=== PATIENT | female | born 1995 | race Caucasian/White ===

== ENCOUNTER 2016-06-09 20:45 | Emergency (ER) | payer OTHER ==
[~2016-06-09 20:45] MED LIST: ABILIFY 2MG2 MG PO; ABILIFY 5MG5 MG PO; ABILIFY5 M1 PO; AUGMENTIN 875-1 EACH PO; FIORICET 325 MG1 TAB PO; FIORICET 50-301 EACH PO; IBUPROFEN600 M1 PO; LAMOTRIGINE100 MG PO; MIRTAZAPINE30 M2 PO; MIRTAZAPINE7.5 M1 PO; MOTRIN800 MG PO; ORTHO TRI-CYCLE1 TA1 PO; ORTHO TRI-CYCLE1 TA2 PO; PREDNISONE20 M1 PO; QUETIAPINE FUM100 MG PO; SAPHRIS5 M1 SL; SERTRALINE HCL100 MG PO; SERTRALINE HYDR50 MG PO; TRAZODONE HCL50 M1 PO; VITAMIN D250000 UNIT PO; ZOFRAN ODT4 M1 PO; ZOFRAN4 M2 PO
[2016-06-09 21:10] VITALS: BP 118/78
[2016-06-09] MEDS ORDERED: PEPCID20 M1 PO (21:41)
[2016-06-09] MEDS ORDERED: BENADRYL ALLERG25 M2 PO (21:41)
[2016-06-09] MEDS ORDERED: PREDNISONE20 M1 PO (21:41)
--- NOTE | 2016-06-09 21:42 | ED SKIN/ALLERGY COMPLAINT ---
History of Present Illness General Chief Complaint: Skin Rash/ Abcess Stated Complaint: RASH ON FACE Source: patient, old records Exam Limitations: no limitations Vital Signs & Intake/Output Vital Signs & Intake/Output Vital Signs Date Time Temp Pulse Resp B/P Pulse O2 O2 Flow FiO2 Ox Delivery Rate 06/09 2110 99.1 95 18 118/78 98 Room Air Allergies Coded Allergies: lithium (FELT BODY GET NUMB AND SHAKE 02/27/16) Reconcile Medications Asenapine Maleate (Saphris) 5 MG TAB.SUBL 1 TAB SL QPM MENTAL HEALTH ( Reported) Diphenhydramine HCl (Benadryl Allergy) 25 MG TABLET 1-2 TAB PO Q6P PRN allergic rx Famotidine (Pepcid) 20 MG TABLET 1 TAB PO BID allergic rx Lamotrigine 100 MG TABLET 300 MG PO BID SEIZURES (Reported) NORGESTIMATE-ETHINYL ESTRADIOL (Ortho Tri-Cyclen Lo Tablet) 1 TAB TAB 1 TAB PO DAILY CONTROL (Reported) Prednisone 20 MG TABLET 1 TAB PO BID allergic rx Sertraline HCl 100 MG TABLET 1.5 TAB PO DAILY MENTAL HEALTH (Reported) Trazodone HCl 50 MG TABLET 0.5 TAB PO QPM SLEEP (Reported) Triage Note: TRIAGE; PT TO ED WITH ?ALLERGIC RXN TO FACE. STATES SHE IS TAKING DOXYCYCLINE AND 3RD DOSE WITH 30 MINS AGO RIGHT BEFORE SYMPTOMS STARTED. STATES SHE DIDNT EAT ANYTHING NEW WITH DINNER. FACE IS RED AND SWOLLEN. STATES SHE FEELS LIKE HER VISION HAS BEEN BLURRY X3 DAYS, WITH NAUSEA AND VOMITING THIS AM. STATES STARTING TO FEEL ITCHY. DENIES ANY DIFFICULTY BREATHING. DENIES ANY NEW SOAPS, DETERGENTS, ETC. Triage Nurses Notes Reviewed? yes Onset: Just prior to arrival Duration: hour(s):, constant, continues in ED Timing: recent history Severity: moderate Location: face Possible Factors: medications Modifying Factors: Improves With: scratching. Associated Symptoms: rash LMP (ages 10-50): unknown : No Patient currently breastfeeds: No HPI: 1 day prior to admission patient was prescribed doxycycline for pelvic infection. She has taken 3 doses. Prior to admission shortly after taking her third dose she developed itchy rash on her face. She denies other new medications fever chills nausea vomiting diarrhea abdominal pain chest pain shortness of breath headache dysuria bleeding. Past History Travel History Traveled to [place] past 21 day No Medical History Any Pertinent Medical History? 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 No Review of Systems Review of Systems Constitutional: Reports: no symptoms. EENTM: Reports: no symptoms. Respiratory: Reports: no symptoms. Cardiovascular: Reports: no symptoms. GI: Reports: no symptoms. Genitourinary: Reports: no symptoms. Musculoskeletal: Reports: no symptoms. Skin: Reports: see HPI, rash. Neurological/Psychological: Reports: no symptoms. Hematologic/Endocrine: Reports: no symptoms. Immunologic/Allergic: Reports: no symptoms. All Other Systems: Reviewed and Negative Physical Exam Physical Exam General Appearance: well developed/nourished, mild distress Head: atraumatic Eyes: Bilateral: PERRL, EOMI. Ears, Nose, Throat: normal pharynx, normal ENT inspection, hearing grossly normal Neck: normal inspection, supple Respiratory: normal breath sounds Cardiovascular: regular rate/rhythm Peripheral Pulses: 4+ carotid (R), 4+ carotid (L) Gastrointestinal: soft, non-tender Back: normal inspection Extremities: normal inspection, normal range of motion, no edema Neurologic/Psych: awake, alert, oriented x 3, normal mood/affect Reflexes: 2+: bicep (R), bicep (L). Skin: intact, normal color, rash Skin Problem Location: face Skin Problem Character: rash Lymphatic: no anterior cervical krissy Progress Differential Diagnosis: abscess/cellulitis, allergic reaction, contact dermatitis, drug reaction Plan of Care: Current Medications Sig/Bony Start time Last Medication Dose Stop Time Status Admin Diphenhydramine HCl 25 MG ONCE ONE 06/09 2144 UNVr (Benadryl) 06/09 2145 Famotidine 20 MG ONCE ONE 06/09 2144 UNVr (Pepcid) 06/09 2145 Prednisone 60 MG ONCE ONE 06/09 2144 UNVr 06/09 2145 Departure Departure Time of Disposition: 2138 Disposition: HOME OR SELF CARE Condition: Stable Clinical Impression Primary Impression: Antibiotic rash Referrals: PATIENT HAS NO PRIMARY CARE DR (PCP/Family) Additional Instructions: Stop doxycycline. Call your ballistic expert for a diffent antibiotic. Departure Forms: Customer Survey General Discharge Information Prescriptions: Current Visit Scripts Prednisone 1 TAB PO BID #10 TAB Diphenhydramine HCl (Benadryl Allergy) 1-2 TAB PO Q6P PRN allergic rx #30 TAB Ref 1 Famotidine (Pepcid) 1 TAB PO BID #10 TAB
== END 2016-06-09 22:05 ==
LOC: ERH 20:45
DX: R21 Rash and other nonspecific skin eruption (principal)

== ENCOUNTER 2016-06-15 14:21 | Emergency (ER) | payer OTHER ==
[~2016-06-15] VITALS: Ht 165.1 cm; Wt 124.7 kg
[~2016-06-15 14:21] MED LIST changes: +BENADRYL ALLERG25 M2 PO; +PEPCID20 M1 PO
[2016-06-15 14:37] LABS: ABSOLUTE BASOPHIL COUNT 0.2 /CUMM (0.0-0.2); ABSOLUTE EOSINOPHIL COUNT 0 /CUMM (0.0-0.7); ABSOLUTE GRANULOCYTE CT 9.2 /CUMM (1.4-6.5); ABSOLUTE LYMPH COUNT 2.3 /CUMM (1.2-3.4); ABSOLUTE MONOCYTE COUNT 0.9 /CUMM (0.10-0.60); BASOPHIL % 1.2 % (0.0-2.0); EOSINOPHIL % 0 % (0-5); GRANULOCYTE % 73.7 % (42.2-75.2); HEMATOCRIT 41.1 % (37-47); MEAN CORPUSCULAR HGB 28.2 PG (27.0-31.0); MEAN CORPUSCULAR VOLUME 83.1 FL (81.0-99.0); MEAN PLATELET VOLUME 9.3 FL (7.4-10.4); PLATELET COUNT 280 /CUMM (130-400); RBC DISTRIBUTION WIDTH 13.5 % (11.5-14.5); RED BLOOD CELL CT 4.95 /CUMM (4.20-5.40); WHITE BLOOD CELL COUNT 12.5 /CUMM (4.8-10.8)
--- NOTE | 2016-06-15 17:44 | ED GI/GU/ABDOMINAL COMPLAINT ---
History of Present Illness General Chief Complaint: Abdominal Pain/Flank Pain Stated Complaint: ? RUPTURED OVARIAN CYST Source: patient, family Exam Limitations: no limitations Vital Signs & Intake/Output Vital Signs & Intake/Output Vital Signs Date Time Temp Pulse Resp B/P Pulse O2 O2 Flow FiO2 Ox Delivery Rate 06/15 1423 97.6 96 16 112/65 96 Room Air Allergies Coded Allergies: lithium (FELT BODY GET NUMB AND SHAKE 02/27/16) Reconcile Medications Asenapine Maleate (Saphris) 5 MG TAB.SUBL 1 TAB SL QPM MENTAL HEALTH ( Reported) Ciprofloxacin HCl (Cipro) 500 MG TABLET 1 TAB PO BID COLITIS Diphenhydramine HCl (Benadryl Allergy) 25 MG TABLET 1-2 TAB PO Q6P PRN allergic rx Famotidine (Pepcid) 20 MG TABLET 1 TAB PO BID allergic rx Lamotrigine 100 MG TABLET 300 MG PO BID SEIZURES (Reported) NORGESTIMATE-ETHINYL ESTRADIOL (Ortho Tri-Cyclen Lo Tablet) 1 TAB TAB 1 TAB PO DAILY CONTROL (Reported) Prednisone 20 MG TABLET 1 TAB PO BID allergic rx Sertraline HCl 100 MG TABLET 1.5 TAB PO DAILY MENTAL HEALTH (Reported) Trazodone HCl 50 MG TABLET 0.5 TAB PO QPM SLEEP (Reported) Triage Note: 20 Y/O FEMALE C/O LOWER CENTER ABDOMINAL PAIN SINCE YESTERDAY. STATES SHE WAS DIAGNOSED WITH OVARIAN CYST 2 WEEKS AGO AND THINKS IT BURST. ALSO REPORTS VAGINAL BLEEDING SINCE LAST NIGHT. DENIES URINARY SYMPTOMS. LAST MENSES 2 WEEKS AGO AND "NORMAL" PER PT Triage Nurses Notes Reviewed? yes ? n Is pt currently ? No Onset: Abrupt Duration: week(s):, constant, continues in ED Timing: recent history Location: lower abdomen Radiation: no radiation Activities at Onset: none No Modifying Factors: none HPI: 20-year-old female comes into emergency room for further evaluation of lower abdominal pain has been going on for the past month. Patient reports that she has had some pain in her lower abdomen. Pain got worse over the past 4 days. She saw her INSTRUMENTATION AND CONTROL TECHNICIAN doctor earlier this week who told her she had a ovarian cyst. She denies any changes in appetite fever chills vomiting. Today she had some vaginal bleeding. Her last menstrual period was about 2 weeks ago so this is not normal for her. Denies any other associated symptoms. (GEORGIE JOAQUIN) Past History Travel History Traveled to [place] past 21 day No Medical History Any Pertinent Medical History? 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 No (GEORGIE JOAQUIN) Review of Systems Review of Systems Constitutional: Reports: no symptoms. EENTM: Reports: no symptoms. Respiratory: Reports: no symptoms. Cardiovascular: Reports: no symptoms. GI: Reports: see HPI. Genitourinary: Reports: see HPI. Musculoskeletal: Reports: no symptoms. Skin: Reports: no symptoms. Neurological/Psychological: Reports: no symptoms. Hematologic/Endocrine: Reports: no symptoms. Immunologic/Allergic: Reports: no symptoms. All Other Systems: Reviewed and Negative (GEORGIE JOAQUIN) Physical Exam Physical Exam General Appearance: well developed/nourished, no apparent distress, alert, awake Head: atraumatic, normal appearance Eyes: Bilateral: normal appearance. Ears, Nose, Throat, Mouth: hearing grossly normal, moist mucous membrane Neck: normal inspection, full range of motion Respiratory: normal breath sounds, no respiratory distress Cardiovascular: regular rate/rhythm Gastrointestinal: soft, tenderness (lower abd) Back: normal inspection Extremities: normal range of motion Neurologic/Psych: awake, alert, oriented x 3, normal gait, normal mood/affect Skin: intact, normal color Core Measures ACS in differential dx? No Severe Sepsis Present: No Septic Shock Present: No (GEORGIE JOAQUIN) Progress Differential Diagnosis: AAA, AMI, appendicitis, biliary colic, bowel obstruction , cholecystitis, diverticulitis, ectopic , gastritis, hernia, hemorrhoids, ischemic bowel, kidney stone, Jennifer-Mini tear, ovarian cyst, ovarian torsion, pancreatitis, PID/cervicitis, peptic ulcer, PUD/GERD, perforated viscous, SBO, threatened AB, UTI/pyelo Plan of Care: Orders Procedure Date/time Status URINE 06/15 142 Complete URINALYSIS 06/15 1425 Complete COMPREHENSIVE METABOLIC PANEL 06/15 1425 Complete CBC WITHOUT DIFFERENTIAL 06/15 142 Complete Laboratory Tests 06/15/16 1525: Urinalysis MOD H, Urine Color YEL, Urine Clarity HAZY H, Urine pH 6.0, Ur Specific Lillian >= 1.030, Urine Protein TRACE H, Urine Ketones TRACE H, Urine Nitrite NEG, Urine Bilirubin NEG, Urine Urobilinogen 0.2, Ur Leukocyte Esterase NEG, Ur Microscopic SEDIMENT EXAMINED, Urine RBC 10-15 H, Urine WBC 10-15 H, Ur Epithelial Cells MOD H, Urine Crystals 1+ CA OX H, Urine Bacteria MOD H, Urine Mucus MOD H, Urine Hemoglobin MOD H, Urine Glucose NEG, Urine Test NEGATIVE 06/15/16 1429: Anion Gap 13, Estimated GFR > 60, BUN/Creatinine Ratio 24.3, Glucose 99, Calcium 9.2, Total Bilirubin 0.3, AST 9 L, ALT 18, Alkaline Phosphatase 59, Total Protein 7.4, Albumin 4.3, Globulin 3.1, Albumin/Globulin Ratio 1.4, CBC w Diff NO MAN DIFF REQ, RBC 4.95, MCV 83.1, MCH 28.2, RDW 13.5, MPV 9.3, Gran % 73.7, Lymphocytes % 18.1 L, Monocytes % 7.0, Eosinophils % 0, Basophils % 1.2, Absolute Granulocytes 9.2 H, Absolute Lymphocytes 2.3, Absolute Monocytes 0.9 H, Absolute Eosinophils 0, Absolute Basophils 0.2, PUBS MCHC 34.0 the case was signed out to me by harpal aguilar at 8pm pending ct results 06/15/2016 9:09:14 PM I discussed with patient and her mother the CAT scan results/incidental findings as well as all her blood work, discussed with her need for close follow-up with her INSTRUMENTATION AND CONTROL TECHNICIAN which she has scheduled for Monday, as well as need for follow-up with GI, information is provided for Dr. Millan. The patient is currently on Flagyl prescribed by her BRIDGE TOLL COLLECTOR, prescription for Cipro will be provided as well to treat for suspected diverticulitis versus colitis I answered all her questions they feel comfortable plan I advised Tylenol Motrin as needed advised return anytime sooner with any concerns they feel comfortable with this plan (HONORIO CUELLAR,ADDI) Diagnostic Imaging: Viewed by Me: CT Scan. Discussed w/RAD: CT Scan. Initial ED EKG: none Hand-Off Endorsed To: ADDI JAMISON Endorsed Time: 2001 Pending: CT (GEORGIE JOAQUIN) Radiology Impression: PATIENT: JYOTHI ROSENTHAL PRESENT AGE: 20 PATIENT ACCOUNT NO: [id number] : 93 LOCATION: [facility] ORDERING PHYSICIAN: GEORGIE CUELLAR SERVICE DATE: 06/15/16 EXAM TYPE : CAT - CT ABD & PELVIS W IV CONTRAST EXAMINATION: CT ABDOMEN AND PELVIS WITH CONTRAST CLINICAL INFORMATION: Lower abdominal pain. COMPARISON: None available. TECHNIQUE: Multidetector volumetric imaging was performed of the abdomen and pelvis before and after the IV administration of 95 mL of Optiray 320 intravenous contrast. Sagittal and coronal reformatted images were obtained on the technologist's workstation. FINDINGS: The lung bases are clear. The liver, spleen, adrenal glands, gallbladder, and pancreas are normal. The kidneys exhibit symmetric nephrograms without evidence of hydronephrosis or nephrolithiasis. No focal renal lesions. Two segments of the sigmoid colon are significantly narrow in caliber, the more distal of which exhibits several diverticula. There is minimal stranding above the distal aspect of this segment which could reflect early acute diverticulitis. The areas of sigmoid colonic narrowing could be from peristalsis or chronic inflammation. Intramural fat deposition within the descending colon can be seen as an anatomic variant or as the sequela of inflammatory bowel disease. There is no pericolonic abscess and there is no free air. The appendix is normal. There is no free air and there is no intra-abdominal free fluid. No mesenteric or retroperitoneal adenopathy. The pelvic viscera are normal. No pelvic adenopathy. No free fluid within the pelvis. There are no acute osseous abnormalities. A fatty filum is demonstrated within the thecal sac spanning the L2 through sacral levels. No significant soft tissue abnormality. IMPRESSION: - Two segments of the sigmoid colon are significantly narrow in caliber, the more distal of which exhibits several diverticula. There is minimal stranding above the distal aspect of this segment which could reflect early acute diverticulitis or a focal colitis. There is no pericolonic abscess and there is no free air. The areas of sigmoid colonic narrowing could be from peristalsis or chronic inflammation. Intramural fat deposition within the descending colon can be seen as an anatomic variant or as the sequela of inflammatory bowel disease. - The appendix is normal. - A fatty filum is demonstrated within the thecal sac spanning the L2 through sacral levels. DICTATED BY: LEAH BANSAL MD DATE/TIME DICTATED:06/15/162005 CAREER CENTER DIRECTOR:CHACHO DATE/TIME TRANSCRIBED:06/15/162005 CONFIDENTIAL, DO NOT COPY WITHOUT APPROPRIATE AUTHORIZATION. <Electronically signed in Other Vendor System> SIGNED BY: LEAH BANSAL MD 06/15/162024 (ADDI JAMISON) Departure Departure Condition: Stable Departure Forms: Customer Survey General Discharge Information (GEORGIE JOAQUIN) Departure Time of Disposition: 2108 Disposition: HOME OR SELF CARE Clinical Impression Primary Impression: Colitis Referrals: JULISSA DOSHI,JOHNATHAN (PCP/Family) FRANCI DOSHI,GINGER Duncan Additional Instructions: FOLLOW UP WITH YOUR BRIDGE TOLL COLLECTOR DR NAVARRO WELL TOOL DESIGN ENGINEER DR KOROMA. CONTINUE TAKING FLAGYL DIRECTED, CIPRO DIRECTED- THIS PRESCRIPTION WAS SENT TO [facility]. Tylenol or Motrin as needed for pain return anytime sooner with any concerns Prescriptions: Current Visit Scripts Ciprofloxacin HCl (Cipro) 1 TAB PO BID #14 TAB (ADDI JAMISON) PA/POSTDOCTORAL FELLOW Co-Sign Statement Statement: ED Attending supervision documentation- [] I saw and evaluated the patient. I have also reviewed all the pertinent lab results and diagnostic results. I agree with the findings and the plan of care as documented in the PA's/POSTDOCTORAL FELLOW's documentation. [X] I have reviewed the ED Record and agree with the PA's/POSTDOCTORAL FELLOW's documentation. [] Additions or exceptions (if any) to the PAs/POSTDOCTORAL FELLOW's note and plan are summarized below: [] (RUDDY DOSHI,LOUIS)
--- NOTE | 2016-06-15 20:25 | CT SCAN REPORT ---
EXAMINATION: CT ABDOMEN AND PELVIS WITH CONTRAST CLINICAL INFORMATION: Lower abdominal pain. COMPARISON: None available. TECHNIQUE: Multidetector volumetric imaging was performed of the abdomen and pelvis before and after the IV administration of 95 mL of Optiray 320 intravenous contrast. Sagittal and coronal reformatted images were obtained on the technologist's workstation. FINDINGS: The lung bases are clear. The liver, spleen, adrenal glands, gallbladder, and pancreas are normal. The kidneys exhibit symmetric nephrograms without evidence of hydronephrosis or nephrolithiasis. No focal renal lesions. Two segments of the sigmoid colon are significantly narrow in caliber, the more distal of which exhibits several diverticula. There is minimal stranding above the distal aspect of this segment which could reflect early acute diverticulitis. The areas of sigmoid colonic narrowing could be from peristalsis or chronic inflammation. Intramural fat deposition within the descending colon can be seen as an anatomic variant or as the sequela of inflammatory bowel disease. There is no pericolonic abscess and there is no free air. The appendix is normal. There is no free air and there is no intra-abdominal free fluid. No mesenteric or retroperitoneal adenopathy. The pelvic viscera are normal. No pelvic adenopathy. No free fluid within the pelvis. There are no acute osseous abnormalities. A fatty filum is demonstrated within the thecal sac spanning the L2 through sacral levels. No significant soft tissue abnormality. IMPRESSION: - Two segments of the sigmoid colon are significantly narrow in caliber, the more distal of which exhibits several diverticula. There is minimal stranding above the distal aspect of this segment which could reflect early acute diverticulitis or a focal colitis. There is no pericolonic abscess and there is no free air. The areas of sigmoid colonic narrowing could be from peristalsis or chronic inflammation. Intramural fat deposition within the descending colon can be seen as an anatomic variant or as the sequela of inflammatory bowel disease. - The appendix is normal. - A fatty filum is demonstrated within the thecal sac spanning the L2 through sacral levels.
[2016-06-15] MEDS ORDERED: CIPRO500 M1 PO (21:11)
[2016-06-15 21:27] VITALS: BP 115/66
== END 2016-06-15 21:28 ==
LOC: ERH 14:21
PROVIDERS: Emergency Medicine
DX: K52.9 Noninfective gastroenteritis and colitis, unspecified (principal)
CPT/HCPCS: 74177; 81001; 81025; 96374; J1885

== ENCOUNTER 2016-09-06 20:22 | Emergency (ER) | payer OTHER ==
[~2016-09-06] VITALS: Ht 165.1 cm; Wt 119.7 kg
[~2016-09-06 20:22] MED LIST changes: +CIPRO500 M1 PO
[2016-09-06 21:03] LABS: ABSOLUTE BASOPHIL COUNT 0 /CUMM (0.0-0.2); ABSOLUTE EOSINOPHIL COUNT 0 /CUMM (0.0-0.7); ABSOLUTE GRANULOCYTE CT 3.5 /CUMM (1.4-6.5); ABSOLUTE LYMPH COUNT 1.5 /CUMM (1.2-3.4); ABSOLUTE MONOCYTE COUNT 0.3 /CUMM (0.10-0.60); BASOPHIL % 0.3 % (0.0-2.0); EOSINOPHIL % 0.1 % (0-5); GRANULOCYTE % 65.4 % (42.2-75.2); HEMATOCRIT 38.2 % (37-47); MEAN CORPUSCULAR HGB 28.1 PG (27.0-31.0); MEAN CORPUSCULAR HGB CONC 33.7 G/DL (33.0-37.0); MEAN CORPUSCULAR VOLUME 83.4 FL (81.0-99.0); MEAN PLATELET VOLUME 9.5 FL (7.4-10.4); PLATELET COUNT 196 /CUMM (130-400); RBC DISTRIBUTION WIDTH 13.3 % (11.5-14.5); RED BLOOD CELL CT 4.58 /CUMM (4.20-5.40); WHITE BLOOD CELL COUNT 5.4 /CUMM (4.8-10.8)
--- NOTE | 2016-09-06 21:26 | ED GI/GU/ABDOMINAL COMPLAINT ---
History of Present Illness General Chief Complaint: Abdominal Pain/Flank Pain Stated Complaint: ABDOMINAL PAIN Source: patient, old records Exam Limitations: no limitations Vital Signs & Intake/Output Vital Signs & Intake/Output Vital Signs Date Time Temp Pulse Resp B/P B/P Pulse O2 O2 Flow FiO2 Mean Ox Delivery Rate 09/06 2245 98.9 64 20 110/60 98 Room Air 09/066 97.6 100 22 141/82 98 Allergies Coded Allergies: doxycycline (SWELLING FACE 09/06/16) lithium (FELT BODY GET NUMB AND SHAKE 02/27/16) Reconcile Medications Albuterol Sulfate (Proair Hfa) 90 MCG HFA.AER.AD 2 PUF INH PRN ASTHMA ( Reported) Bifidobacterium Infantis (Align) 4 MG (1 BILLION CELL) CAPSULE 1 CAP PO DAILY PROBIOTIC (Reported) Fluoxetine HCl 40 MG CAPSULE 1 CAP PO DAILY MENTAL HEALTH (Reported) Lamotrigine 100 MG TABLET 3 TAB PO BID SEIZURES (Reported) Norgestimate-Ethinyl Estradiol (Ortho Tri-Cyclen Lo Tablet) [id number] LO TABLET 1 TAB PO DAILY CONTROL (Reported) Ondansetron (Zofran Odt) 4 MG TAB.RAPDIS 1 TAB SL TID PRN nausea Pantoprazole Sodium (Protonix) 40 MG TABLET.DR 1 TAB PO DAILY gerd Trazodone HCl 100 MG TABLET 1 TAB PO QPM SLEEP (Reported) Triage Note: PER PT ABD PAIN SINCE BEGINNING OF AUGUST, SAW A GI DR AND PLACED ON 2 ANTIBIOTICS FINISHED THEM ABOUT 1 WEEK AGO PAIN BACK AND HAVING UNBEARABLE PAIN. LMP 2 WEEKS AGO, SCHEDULED FOR SCOPE ON 09/20 Triage Nurses Notes Reviewed? yes LMP (ages 10-50): LAST WEEK ? N Is pt currently ? No Onset: Abrupt Duration: week(s): (1), intermittent, waxing and waning Timing: recent history Quality/Severity: aching, cramping, moderate Severity Numbers: 6 Location: epigastric Radiation: no radiation Activities at Onset: none Prior Abdominal Problems: similar symptoms No Modifying Factors: none Associated Symptoms: DENIES HPI: 21-year-old female presents to ER for evaluation complaining of progressively worsening intermittent waxing and waning generalized abdominal pain that she's had several episodes of going on since June of this year. She was seen here for the symptoms with a began diagnosed with colitis. She is placed on antibiotics and states his symptoms resolved she had another episode a few weeks ago was seen by Dr. Wisdom and schedule an endoscopy colonoscopy at the end of September. She states she is currently being worked up for ulcerative colitis versus Crohn's versus diverticulitis. This pain she has now began in her epigastric region however is not generalized across her entire abdomen nonradiating no back pain urinary symptoms. Her last menstrual cycle was last week and normal. She denies any urinary symptoms nausea vomiting diarrhea no change in appetite she is not taken anything for her symptoms no black or bloody stools. nO HISTORY. Of abdominal surgeries in the past (ADDI JAMISON) Past History Travel History Traveled to [place] past 21 day No Medical History Any Pertinent Medical History? 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 No (ADDI JAMISON) Review of Systems Review of Systems Constitutional: Reports: no symptoms, see HPI. All Other Systems: Reviewed and Negative Comments Review of systems: See HPI, All other systems negative. Constitutional, no chills no fever, no malaise no weight loss HEENT: no sore throat no congestion, no ear pain Cardiovascular: No chest pain , no palpitation Skin: no rashes, no change in skin Respiratory: No dyspnea no cough no sputum GI: No nausea no vomiting, no diarrhea : No dysuria No hematuria, no frequency, no discharge Muscle skeletal: No joint pain, no joint swelling, no back pain, no neck pain, Neurologic: no headache Psych: No stress no depression,. Heme/endocrine: No bruising no bleeding Immunology: No lymphadenopathy (ADDI JAMISON) Physical Exam Physical Exam General Appearance: well developed/nourished, no apparent distress, alert Gastrointestinal: normal bowel sounds, soft Comments: Well-developed well-nourished person in no acute distress HEENT: Normal EENT exam; PERRL, EOMI, no nystagmus. HEAD is atraumatic. moist mucous membranes. Neck: Supple, no lymphadenopathy, normal range of motion without pain or tenderness Back: Nontender, no CVA tenderness. Full range of motion Cardiovascular: Regular rate and rhythms no murmurs rubs or gallops, normal JVP Respiratory: Chest nontender.There were no bony deformities, no asymmetry. No respiratory distress. Patient speaking in full complete sentences. Breath sounds clear to auscultation bilaterally: NO W/R/R Abdomen: Soft, nontender nondistended, no appreciable organomegaly. Normal bowel sounds. No rebound/guarding, No appreciable enlargement of the abdominal aorta, No ascites. Extremity: No edema, full range of motion of extremities, normal and equal pulses bilaterally, 5 out of 5 strength noted to bilateral upper and lower extremities Neuro: Alert oriented x3, motor sensory normal, cranial nerves II through XII grossly intact. There were no obvious focal neurologic abnormalities. Skin: No appreciable rash on exposed skin, skin is warm and dry. Psych: Mood and affect is normal, memory and judgment is normal. Core Measures ACS in differential dx? No Severe Sepsis Present: No Septic Shock Present: No (HONORIO CUELLAR,ADDI) Progress Differential Diagnosis: appendicitis, biliary colic, bowel obstruction, colon cancer, diverticulitis, ectopic , gastritis, hepatitis, hernia, ischemic bowel, inflamm bowel dis, pancreatitis, peptic ulcer, PUD/GERD, perforated viscous, SBO, threatened AB, UTI/pyelo Plan of Care: Orders Procedure Date/time Status LIPASE 09/06 2046 Complete LACTIC ACID 09/06 2046 Complete COMPREHENSIVE METABOLIC PANEL 09/06 2046 Complete CBC WITHOUT DIFFERENTIAL 09/06 2046 Complete AMYLASE 09/06 2046 Complete URINE 09/06 2033 Complete URINALYSIS 09/06 2033 Complete Laboratory Tests 09/06/162051: Anion Gap 13, Estimated GFR > 60, BUN/Creatinine Ratio 21.4, Glucose 113 H, Lactic Acid 1.0, Calcium 9.4, Total Bilirubin 0.4, AST 13 L, ALT 21, Alkaline Phosphatase 50, Total Protein 7.1, Albumin 4.3, Globulin 2.8, Albumin/Globulin Ratio 1.5, Amylase 43, Lipase 118, CBC w Diff NO MAN DIFF REQ, RBC 4.58, MCV 83.4, MCH 28.1, RDW 13.3, MPV 9.5, Gran % 65.4, Lymphocytes % 27.9, Monocytes % 6.3, Eosinophils % 0.1, Basophils % 0.3, Absolute Granulocytes 3.5, Absolute Lymphocytes 1.5, Absolute Monocytes 0.3, Absolute Eosinophils 0, Absolute Basophils 0, PUBS MCHC 33.7 09/06/162033: Urine Color YEL, Urine Clarity HAZY H, Urine pH 6.0, Ur Specific [place] 1.025, Urine Protein NEG, Urine Ketones NEG, Urine Nitrite NEG, Urine Bilirubin NEG, Urine Urobilinogen 0.2, Ur Leukocyte Esterase TRACE H, Ur Microscopic SEDIMENT EXAMINED, Urine WBC 3-5 H, Ur Epithelial Cells MOD H, Urine Bacteria MANY H, Urine Mucus FEW, Urine Hemoglobin NEG, Urine Glucose NEG, Urine Test NEGATIVE Labs ordered old records reviewed patient medicated Pepcid Toradol IV IV fluids. Repeat evaluation patient reports pain has improved with medications are discussed with her at length all of her CAT scan and lab results. I had an extensive conversation regarding need for close follow up with their primary care physician this week as well as return precautions. I answered all of their questions, they feel comfortable with the plan and follow-up care. I discussed with the patient/family the medications that they will receive. I gave them signs and symptoms that could indicate an adverse reaction. I have advised them to limit their activities until they can see how they respond to the medication. (HONORIO CUELLAR,ADDI) Diagnostic Imaging: Viewed by Me: CT Scan. Discussed w/RAD: CT Scan. Radiology Impression: PATIENT: JYOTHI ROSENTHAL PRESENT AGE: 21 PATIENT ACCOUNT NO: [id number] : 93 LOCATION: [facility] ORDERING PHYSICIAN: ADDI CUELLAR SERVICE DATE: 09/06/16 EXAM TYPE: CAT - CT ABD & PELVIS W IV CONTRAST EXAMINATION: CT ABDOMEN AND PELVIS WITH CONTRAST CLINICAL INFORMATION: Epigastric abdominal pain. COMPARISON: Epigastric abdominal pain. TECHNIQUE: Multidetector volumetric imaging was performed of the abdomen and pelvis before and after the IV administration of 95 mL of Optiray 320 intravenous contrast. Sagittal and coronal reformatted images were obtained on the technologist's workstation. DLP: 1191 mGy-cm FINDINGS: LUNG BASES: The visualized lung bases are unremarkable. LIVER, GALLBLADDER, AND BILIARY TREE: The liver is normal in size, shape, and attenuation. No focal hepatic lesion or biliary ductal dilatation is present. The gallbladder is contracted, limiting evaluation. There is no evidence of radiopaque gallstones, gallbladder wall thickening, or obvious pericholecystic inflammatory changes. PANCREAS: Unremarkable. SPLEEN: Unremarkable. ADRENAL GLANDS: Unremarkable. KIDNEYS AND URETERS: The kidneys are normal in size, shape, and attenuation. No hydronephrosis, hydroureter, or calculi seen. No perinephric stranding. BLADDER: Unremarkable. GASTROINTESTINAL TRACT: Normal anatomic orientation of the stomach relative to the duodenum. Normal caliber of abdominal and pelvic bowel loops, without evidence of obstruction or ileus. No circumferential bowel wall thickening with surrounding inflammatory changes to suggest an underlying infectious or inflammatory enterocolitis. Normal-appearing appendix within the right lower quadrant of the abdomen. No organizing intra-abdominal fluid collections or free intraperitoneal air. ABDOMINAL WALL: No significant hernia is appreciated. LYMPH NODES: No significant abdominal or pelvic adenopathy. VASCULAR: Patent abdominal vasculature. Normal course and caliber of the abdominal aorta and its branching vessels, without aneurysmal dilatation. PELVIC VISCERA: Minimal free fluid within the pelvic cul-de-sac. A 1.4 cm hypoattenuating structure within the left ovary is nonspecific but may represent a small ovarian cyst or dominant follicle. OSSEOUS STRUCTURES: No acute osseous abnormality. Normal alignment of the thoracolumbar spine. IMPRESSION: No acute findings within the abdomen or pelvis to explain patient symptomatology. No cholelithiasis or secondary signs of acute cholecystitis. A normal-appearing appendix is present within the right lower quadrant of the abdomen. DICTATED BY: TERENCE PINEDA MD DATE/TIME DICTATED:09/06/162236 SOLUTION LEAD:CHACHO DATE/TIME TRANSCRIBED:09/06/162236 CONFIDENTIAL, DO NOT COPY WITHOUT APPROPRIATE AUTHORIZATION. 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 PROTONIX as discussed. these were sent to [facility] Departure Forms: Customer Survey General Discharge Information Prescriptions: Current Visit Scripts Ondansetron (Zofran Odt) 1 TAB SL TID PRN nausea #10 TAB Pantoprazole Sodium (Protonix) 1 TAB PO DAILY #14 TAB (ADDI JAMISON) PA/V BELT CURER Co-Sign Statement Statement: ED Attending supervision documentation- [] I saw and evaluated the patient. I have also reviewed all the pertinent lab results and diagnostic results. I agree with the findings and the plan of care as documented in the PA's/V BELT CURER's documentation. [X] I have reviewed the ED Record and agree with the PA's/V BELT CURER's documentation. [] Additions or exceptions (if any) to the PAs/V BELT CURER's note and plan are summarized below: [] (RICHELLE DOSHI,JERMAINE Meyer)
[2016-09-06] MEDS ORDERED: ORTHO TRI-CYCL1 EAC1 PO (22:26)
[2016-09-06] MEDS ORDERED: LAMOTRIGINE100 M2 PO (22:27)
[2016-09-06] MEDS ORDERED: TRAZODONE HCL100 M1 PO (22:27)
[2016-09-06] MEDS ORDERED: PROAIR HFA8.5 GM INH (22:27)
[2016-09-06] MEDS ORDERED: FLUOXETINE HCL40 M1 PO (22:27)
[2016-09-06] MEDS ORDERED: ALIGN4 M1 PO (22:28)
[2016-09-06 22:45] VITALS: BP 110/60
--- NOTE | 2016-09-06 22:53 | CT SCAN REPORT ---
EXAMINATION: CT ABDOMEN AND PELVIS WITH CONTRAST CLINICAL INFORMATION: Epigastric abdominal pain. COMPARISON: Epigastric abdominal pain. TECHNIQUE: Multidetector volumetric imaging was performed of the abdomen and pelvis before and after the IV administration of 95 mL of Optiray 320 intravenous contrast. Sagittal and coronal reformatted images were obtained on the technologist's workstation. DLP: 1191 mGy-cm FINDINGS: LUNG BASES: The visualized lung bases are unremarkable. LIVER, GALLBLADDER, AND BILIARY TREE: The liver is normal in size, shape, and attenuation. No focal hepatic lesion or biliary ductal dilatation is present. The gallbladder is contracted, limiting evaluation. There is no evidence of radiopaque gallstones, gallbladder wall thickening, or obvious pericholecystic inflammatory changes. PANCREAS: Unremarkable. SPLEEN: Unremarkable. ADRENAL GLANDS: Unremarkable. KIDNEYS AND URETERS: The kidneys are normal in size, shape, and attenuation. No hydronephrosis, hydroureter, or calculi seen. No perinephric stranding. BLADDER: Unremarkable. GASTROINTESTINAL TRACT: Normal anatomic orientation of the stomach relative to the duodenum. Normal caliber of abdominal and pelvic bowel loops, without evidence of obstruction or ileus. No circumferential bowel wall thickening with surrounding inflammatory changes to suggest an underlying infectious or inflammatory enterocolitis. Normal-appearing appendix within the right lower quadrant of the abdomen. No organizing intra-abdominal fluid collections or free intraperitoneal air. ABDOMINAL WALL: No significant hernia is appreciated. LYMPH NODES: No significant abdominal or pelvic adenopathy. VASCULAR: Patent abdominal vasculature. Normal course and caliber of the abdominal aorta and its branching vessels, without aneurysmal dilatation. PELVIC VISCERA: Minimal free fluid within the pelvic cul-de-sac. A 1.4 cm hypoattenuating structure within the left ovary is nonspecific but may represent a small ovarian cyst or dominant follicle. OSSEOUS STRUCTURES: No acute osseous abnormality. Normal alignment of the thoracolumbar spine. IMPRESSION: No acute findings within the abdomen or pelvis to explain patient symptomatology. No cholelithiasis or secondary signs of acute cholecystitis. A normal-appearing appendix is present within the right lower quadrant of the abdomen.
[2016-09-06] MEDS ORDERED: PROTONIX40 M3 PO (23:12)
[2016-09-06] MEDS ORDERED: ZOFRAN ODT4 M1 SL (23:12)
== END 2016-09-06 23:32 ==
LOC: ERH 20:22
PROVIDERS: Emergency Medicine
DX: K29.70 Gastritis, unspecified, without bleeding (principal)
CPT/HCPCS: 74177; 81001; 81025; 96361; 96374; 96375; J1885; J2405

== ENCOUNTER → 2017-10-13 | Day surgery (SDC) | payer OTHER ==
[~2017-10-13] VITALS: Ht 165.1 cm; Wt 123.4 kg
[~2017-10-13] MED LIST changes: +ALIGN4 M1 PO; +BENADRYL25 MG PO; +FLUOXETINE HCL40 M1 PO; +IBUPROFEN800 M1 PO; +LAMOTRIGINE100 M2 PO; +LEVSIN0.125 M1 PO; +LIDOCAINE HCL V15 ML PO; +MEDROL4 M2 PO; +ORTHO TRI-CYCL1 EAC1 PO; +PROAIR HFA8.5 GM INH; +PROTONIX40 M3 PO; +REGLAN10 M1 PO; +TRAMADOL HCL50 M1 PO; +TRAZODONE HCL100 M1 PO; +VITAMIN D350000 UNIT PO; +ZOFRAN ODT4 M1 SL
--- NOTE | 2017-10-13 12:05 | Operative Report ---
Operative/Inv Procedure Report Surgery Date: 10/13/17 Name of Procedure: Excision deep posterior neck lipoma, 4 cm Pre-Operative Diagnosis: lipoma Post-Operative Diagnosis: same Estimated Blood Loss: scant Surgeon/Chief Credit Officer: Kj Troncoso MD Anesthesia: local monitored anesthesi Specimens: Lipoma Operative/Procedure Note Note: After consent patient brought to operating room and laid prone. She was then heavily sedated in her neck prepped and draped. The area overlying pre-existing scar was infiltrated local anesthesia. Incision made sharply in this obtains tissues dissected with cautery. There is a thick envelope of fat. It is difficult to ascertain if there is a true lipoma or this was just fatty deposition within the tissues. We peeled out the layer of fat according to the muse were made preoperatively. The entire piece was taken out en bloc and measured approximately 4 x 4 centimeters. Wound was then irrigated with saline and hemostasis achieved with cautery. The wound was then closed in layers of 3- 0 and 4-0 Vicryl sutures. The deeper tissues were anchored to the fascia to try to obliterate this space and avoid seroma formation. Steri-Strips and sterile dressing applied. Sponge and needle counts are correct CC: Ashlyn DOSHI,Shimon Joyner
== END ==
LOC: STS 02:39
DX: D17.0 Benign lipomatous neoplasm of skin and subcutaneous tissue of head, face and neck (principal); E66.01 Morbid (severe) obesity due to excess calories; Z68.42 Body mass index [BMI] 45.0-49.9, adult; K21.9 Gastro-esophageal reflux disease without esophagitis; J45.909 Unspecified asthma, uncomplicated
CPT/HCPCS: 81025; J0131; J1885; J2250; J3490

== ENCOUNTER 2017-11-11 18:00 | Emergency (ER) | payer OTHER ==
[~2017-11-11] VITALS: Ht 165.1 cm; Wt 121.6 kg
[2017-11-11 18:06] VITALS: BP 123/74
--- NOTE | 2017-11-11 19:31 | RADIOLOGY REPORT ---
EXAMINATION: XR KNEE, LEFT CLINICAL INFORMATION: Prepatellar pain. COMPARISON: None TECHNIQUE: Frontal, bilateral oblique, lateral and axial views of the left knee are submitted. FINDINGS: Bones and soft tissues are normal. No fracture or joint effusion. Alignment is anatomic. Joint spaces are well maintained. No abnormal soft tissue calcification. IMPRESSION: Normal left knee.
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
== END 2017-11-11 20:07 ==
LOC: ERH 18:00
DX: M25.562 Pain in left knee (principal)
CPT/HCPCS: 73562-LT